=== PATIENT | female | born 1960 | race Caucasian/White ===

== ENCOUNTER 2019-01-05 07:52 | Emergency (ER) | payer OTHER, BC ==
[~2019-01-05] VITALS: Ht 170.2 cm; Wt 67.6 kg
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
[2019-01-05] MEDS ORDERED: AMOXICILLIN 500 MG (POLYMOX) CAP PO ONE (08:26)
[2019-01-05] MEDS ORDERED: AMOX500C2 PO (08:27)
[2019-01-05] MEDS ORDERED: TETANUS,DIPTH,PERTUSS P/F (BOOSTRIX) 0.5 ML VIAL IM ONE (08:30)
[2019-01-05] MEDS ORDERED: AMOXICILLIN 250 MG (POLYMOX) CAP PO SCH (08:30)
[2019-01-05] MEDS ORDERED: AMOXICILLIN 500 MG (POLYMOX) CAP PO STA (08:37)
[2019-01-05 08:47] VITALS: BP 148/92
== END 2019-01-05 08:47 | disposition home or self-care (01) ==
LOC: MERGE 07:54 → ER FS 07:54
DX: S01.511A Laceration without foreign body of lip, initial encounter (principal); S00.33XA Contusion of nose, initial encounter; R40.2142 Coma scale, eyes open, spontaneous, at arrival to emergency department; R40.2252 Coma scale, best verbal response, oriented, at arrival to emergency department; R40.2362 Coma scale, best motor response, obeys commands, at arrival to emergency department; Z23 Encounter for immunization; V47.5XXA Car driver injured in collision with fixed or stationary object in traffic accident, initial encounter
CPT/HCPCS: 12011; 90471; 90715